=== PATIENT | male | born 1990 | race Hispanic/Latino ===

== ENCOUNTER 2019-03-14 13:23 | Emergency (ER) | payer OTHER ==
[2019-03-14 13:40] VITALS: BP 139/76; PULSE 74; RESP 16; TEMP 98.3; O2SAT 100
--- NOTE | 2019-03-14 14:41 | ED PDOC ---
Upper Extremity Pain/Injury Time Seen by Provider: 03/14/19 13:41 Chief Complaint (Nursing): Upper Extremity Problem/Injury Chief Complaint (Provider): Right arm pain History Per: Patient History/Exam Limitations: no limitations Current Symptoms Are (Timing): Still Present Additional Complaint(s): 28 y/o male presents with right forearm pain. Patient reports he woke up with the pain and denies any injury. He indicates 8 years ago, he had a stress fracture to the same extremity. He states the pain feels the same as when he injured it the first time. Patient denies having a need for surgery and thinks arm was placed in a soft splint at that time. Patient took 2 Advils at noon today and felt better but pain is still present. PMD: none provided Past Medical History Reviewed: Historical Data, Nursing Documentation, Vital Signs Vital Signs: Last Vital Signs Temp 98.3 F 03/14/19 13:40 Pulse 74 03/14/19 13:40 Resp 16 03/14/19 13:40 BP 139/76 03/14/19 13:40 Pulse Ox 100 03/14/19 13:40 Primary Care Provider: Non [facility] Provider, - Medical History PMH: No Chronic Diseases - Surgical History Surgical History: No Surg Hx - Family History Family History: States: Unknown Family Hx - Allergies Allergies/Adverse Reactions: Allergies Allergy/AdvReac Type Severity Reaction Status Date / Time cephalexin [From Keflex] Allergy ITCHING Verified 03/14/19 13:36 Review of Systems ROS Statement: Except As Marked, All Systems Reviewed And Found Negative Musculoskeletal: Positive for: Arm Pain (right forearm pain) Physical Exam - Reviewed Nursing Documentation Reviewed: Yes Vital Signs Reviewed: Yes - Physical Exam Appears: Positive for: No Acute Distress Head Exam: Positive for: ATRAUMATIC, NORMOCEPHALIC Skin: Positive for: Normal Color, Warm, Dry Eye Exam: Positive for: Normal appearance Neck: Positive for: Normal, Painless ROM Cardiovascular/Chest: Positive for: Regular Rate, Rhythm Respiratory: Positive for: Normal Breath Sounds. Negative for: Wheezing, Respiratory Distress Pulses-Radial (L): 2+ Pulses-Radial (R): 2+ Extremity: Positive for: Tenderness (point tenderness distally; unable to differentiate whether ulna or radial bone), Capillary Refill (less than 2 seconds), Other (Normal temperature and color; (-) redness, (-) ecchymosis; good hand strength; patient feels more pain when squeezing or making a fist). Negative for: Swelling - ECG O2 Sat by Pulse Oximetry: 100 (RA) Pulse Ox Interpretation: Normal - Radiology X-Ray: Interpreted by Me, Viewed By Me X-Ray Interpretation: Other (No acute fracture) Medical Decision Making Medical Decision Making: Initial Impression: Right forearm pain Initial Plan: --Right Forearm X-ray 15:31 X-ray reviewed by me showing no acute fracture. Wrapped right arm in an lambert bandage and advised to keep on for about a week. Advised to continue taking anti inflammatories. Referral to ortho given for patient to follow up with. 15:34 Right Forearm X-ray FINDINGS: BONES: No fracture or destructive lesion. JOINT SPACES: Unremarkable. OTHER FINDINGS: None. IMPRESSION: Unremarkable radiographs of the right forearm. Scribe Attestation: Documented by Ashkan Oshea acting as a scribe for Molly Mcconnell NP. Provider Scribe Attestation: All medical record entries made by the Scribe were at my direction and personally dictated by me. I have reviewed the chart and agree that the record accurately reflects my personal performance of the history, physical exam, medical decision making, and the department course for this patient. I have also personally directed, reviewed, and agree with the discharge instructions and disposition. Disposition - Clinical Impression Clinical Impression: Forearm injury - Patient ED Disposition Is Patient to be Admitted: No - Disposition Referrals: Non [facility] Provider, [Primary Care Provider] - Ti Tomlinson III, MD [Staff Provider] - Disposition: Against Medical Advice Disposition Time: 15:00 Condition: GOOD Instructions: Active Range of Motion Exercises, Arms and Hands Forms: [employer] ([place]) - POA Present On Arrival: None
--- NOTE | 2019-03-14 15:37 | RAD ---
PROCEDURE: Radiographs of the Right Forearm HISTORY: Right forearm Pain. No history of recent/ related trauma provided. COMPARISON: None available. TECHNIQUE: Frontal and lateral views obtained. 2 views obtained. FINDINGS: BONES: No fracture or destructive lesion. JOINT SPACES: Unremarkable. OTHER FINDINGS: None. IMPRESSION: Unremarkable radiographs of the right forearm.
== END 2019-03-14 15:47 | disposition home or self-care (01) ==
LOC: SUPCPDRO 13:23 → H.ER 13:23
DX: S59.911A Unspecified injury of right forearm, initial encounter (principal); Z88.1 Allergy status to other antibiotic agents